=== PATIENT | female | born 1995 | race Caucasian/White ===

== ENCOUNTER 2017-05-11 06:15 | Emergency (ER) | payer BC ==
[~2017-05-11] VITALS: Ht 165.1 cm; Wt 81.8 kg
[~2017-05-11 06:15] MED LIST: NORCO 325 MG-51 TAB PO; ZOFRAN 4MG T4 MG/TAB PO
[2017-05-11 06:21] VITALS: TEMP 98.6
[2017-05-11 07:07] LABS: COLLECTION METHOD CLEAN CATCH
[2017-05-11 07:10] LABS: BASO % 0.4 % (0.0-2.0); EOS % 0.4 % (0-4.0); GRAN # 7.2 (1.4-6.5); GRAN % 76.5 % (42.2-75.2); HEMATOCRIT 41.9 % (37.0-47.0); HEMOGLOBIN 14.1 g/dl (12.5-16.0); LYMPH # 1.7 (1.2-3.4); LYMPH % 17.6 % (20.0-51.0); MEAN CELL VOLUME 92 fl (80.0-100.0); MEAN CORPUSCULAR HEMOGLOBIN 31 pg (27.0-31.0); MEAN CORPUSCULAR HGB CONC 34 g/dl (33.0-37.0); MEAN PLATELET VOLUME 10.2 fl (7.4-10.4); MONO # 0.5 (0.1-0.6); MONO % 4.9 % (1.7-9.3); PLATELET COUNT 278 K/mm3 (130-400); RED BLOOD COUNT 4.58 M/mm3 (4.10-5.30); WHITE BLOOD COUNT 9.4 K/mm3 (4.8-10.8)
[2017-05-11 07:27] LABS: ADJUSTED CALCIUM 8.9 mg/dL (8.4-10.2); ALANINE AMINOTRANSFERASE 43 U/L (9-52); ALKALINE PHOSPHATASE 78 U/L (50-136); ANION GAP 13 mmol/L (7-16); BILIRUBIN,TOTAL 0.7 mg/dL (0.0-1.0); BLOOD UREA NITROGEN 15 mg/dL (7-17); CALCIUM 9.7 mg/dL (8.4-10.2); CARBON DIOXIDE 23 mmol/L (22-30); CHLORIDE 101 mmol/L (98-107); GLUCOSE 116 mg/dL (74-106); LIPASE 81 U/L (23-300); POTASSIUM 3.6 mmol/L (3.4-5.0); SODIUM 137 mmol/L (137-145); TOTAL PROTEIN 8.2 gm/dL (6.4-8.2)
[2017-05-11 07:28] LABS: C-REACTIVE PROTEIN < 0.5 mg/dL (0.0-0.9)
[2017-05-11 07:36] LABS: MUCOUS Present /lpf; PH 5 (5-8); SQUAMOUS EPITHELIAL 0-2 /hpf; URINE APPEARANCE Hazy; URINE BACTERIA None Seen /hpf; URINE BILIRUBIN Negative (NEGATIVE); URINE BLOOD 3+ (NEGATIVE); URINE COLOR Yellow; URINE GLUCOSE Negative (NEGATIVE); URINE KETONE Negative (NEGATIVE); URINE LEUKOCYTE ESTERASE Negative (NEGATIVE); URINE PROTEIN(semi-quant) 1+ (NEGATIVE); URINE RBC >50 /hpf; URINE UROBILINOGEN Negative (NEGATIVE)
[2017-05-11] MEDS ORDERED: NORCO 325 MG-51 TAB PO (07:44)
[2017-05-11 08:15] VITALS: BP 132/89; PULSE 83
== END 2017-05-11 08:15 | disposition home or self-care (01) ==
LOC: COL.ER 06:15
PROVIDERS: Emergency Medicine
DX: N20.0 Calculus of kidney (principal); Z87.442 Personal history of urinary calculi
CPT/HCPCS: J1170; J2550; J7030